=== PATIENT | female | born 2005 | race African-American/Black ===

== ENCOUNTER 2024-06-29 20:56 | Emergency (ER) | payer BC, SELFPAY ==
--- NOTE | ~2024-06-29 | US_ITS ---
EXAMINATION: US PELVIS CLINICAL INFORMATION: Rule out torsion. COMPARISON: None available. TECHNIQUE: Ultrasound of the pelvis is performed using both transabdominal and transvaginal transducers along with Doppler. Transvaginal imaging is performed due to inadequate visualization transabdominally. FINDINGS: The uterus is retroflexed measuring 8.07 x 3.3 cm x 4.2 cm. The endometrial echocomplex measures 3 mm in width. No abnormal endometrial fluid collections identified. The right ovary measures 3.07 x 2.2 cm x 2.0 seen. The left ovary measures 2.7 cm x 2.1 x 2.2 cm. Normal-appearing subcentimeter anechoic cysts are present in the left and right ovaries. Spectral Doppler interrogation demonstrates low resistance arterial waveforms in the left and right ovaries. A trace quantity of physiologic anechoic free intraperitoneal fluid is present in the pelvic cul-de-sac. US/US pelvic and transvaginal IMPRESSION: *Normal pelvic ultrasound. *Normal appearance of the ovaries. Normal bilateral ovarian low resistive arterial waveforms. No evidence of ovarian torsion. *Retroflexed uterus. Electronically signed by: Delbert Garza MD 06/30/2024 01:31 AM [facility]
[2024-06-29 21:04] VITALS: BP 115/65; PULSE 80; RESP 24; TEMP 36.8; O2SAT 99; BMI 29.1
[2024-06-29 21:36] LABS: MANUAL DIFF FLAG NO
[2024-06-29 21:41] LABS: Basophils Percent Auto 0.5 % (0-2); Eosinophils Absolute Auto 0.5 X10*3/uL (0.0-0.4); Eosinophils Percent Auto 6.5 % (0-4); Hematocrit 39.5 % (37.0-47.0); Imm Gran Abs Auto 0.02 X10*3/uL (0.00-0.03); Imm Gran Pct Auto 0.2 % (0.0-0.4); Lymphocytes Absolute Auto 3.3 X10*3/uL (1.2-4.9); Lymphocytes Percent Auto 40.6 % (20-40); Mean Corpuscular HGB Conc 32.9 g/dl (31.0-35.0); Mean Corpuscular Hemoglobin 27.2 pg (27.0-33.0); Mean Corpuscular Volume 82.6 fL (80.0-98.0); Mean Platelet Volume 9.4 fL (9.4-12.3); Monocytes Absolute Auto 0.6 X10*3/uL (0.1-1.2); Monocytes Percent Auto 7.6 % (2-11); Neutrophils Absolute Auto 3.7 x10*3/uL (2.0-8.3); Neutrophils Percent Auto 44.6 % (45-73); Platelet Count 322 X10*3/uL (160-400); Red Blood Count 4.78 X10*6/uL (4.20-5.50); Red Cell Distribution Width 14.1 % (11.0-16.0); White Blood Count 8.2 X10*3/uL (4.8-10.8)
[2024-06-29 21:46] LABS: Appearance Urine Clear; Color Urine Yellow; Glucose Urine UA Negative (Negative); Leukocyte Esterase Urine Negative (Negative); Nitrite Urine Negative (Negative); UMIC TRIGGER UACC YES; Urine Blood Moderate (2+) (Negative); Urine Ketones Negative (Negative); Urine Protein Negative (Neg-Trace)
[2024-06-29 21:51] LABS: Bacteria Urine None Seen (None Seen); Hyaline Casts Urine 0-2 /LPF (0-2); RBC Urine >20 /HPF (0-2); Squamous Epithelial Cell Urine 0-2 /HPF (0-2); WBC Urine 0-5 /HPF (0-5)
[2024-06-29 21:53] LABS: Alanine Aminotransferase 15 U/L (0-31); Albumin Level 4.1 g/dL (3.5-5.0); Alkaline Phosphatase 80 U/L (39-117); Anion Gap 11 (12-20); Aspartate Amino Transferase 19 U/L (5-31); Bilirubin Direct 0.1 mg/dL (0.0-0.5); Bilirubin Total 0.3 mg/dL (0.0-1.0); Blood Urea Nitrogen 12 mg/dL (9-16); Calcium 9.2 mg/dL (8.4-10.2); Carbon Dioxide 24 mmol/L (22-29); Chloride 106 mmol/L (96-108); Creatinine Clr Calc Pharmacy 181.9; Estimated Glomerular Filt Rate > 60; Glucose Random 95 mg/dL (60-115); Lipase 16 U/L (8-78); Potassium 3.7 mmol/L (3.3-5.1); Sodium 137 mmol/L (135-145); Total Protein 7.3 g/dL (6.5-8.0)
[2024-06-30] MEDS: Ketorolac Tromethamine 15 MG/ML VIAL IM (00:01)
--- NOTE | 2024-06-30 01:17 | ED_ITS ---
HPI - Abdominal Pain General Chief Complaint: Abdominal Pain Stated Complaint: lwr abd pain Time Seen by Provider: 06/29/24 23:25 Source: patient Limitations: no limitations History of Present Illness ED Provider: Margy Adair PA-C HPI narrative: 19-year-old F with hx of menorrhagia and dysmenorrhea presents with pelvic pain x2 days. Patient currently has her cycle, she has had her typical related cramps and heavy bleeding. However, prior to arrival her discomfort became severe, and she developed diaphoresis. Her symptoms today are atypical for her. Denies known ovarian cysts. Related Data Previous Rx's ?Medication ?Instructions ?Recorded ketorolac 10 mg tablet 10 mg PO Q6H PRN pain #20 tabs 06/30/24 Allergies Allergy/AdvReac Type Severity Reaction Status Date / Time No Known Allergies Allergy Verified 06/29/24 21:08 Review of Systems Review of Systems Yes all other systems are reviewed and are negative Constitutional: Denies fatigue and Denies fever(s) Cardiovascular: Denies chest pain Gastrointestinal: Denies abdominal pain Genitourinary: Reports abnormal vaginal bleeding, Reports dysmenorrhea and Reports pelvic pain Endocrine: Denies fatigue [facility] Past Medical History Attestation statement: The following information was validated with the patient. Social History Social History Advance Directives: No Advance Directives Information Provided: No Do you have a plan to hurt others: No Plan Physical Exam ED Vital Signs: Vital Signs - 24 hr 06/29/24 21:04 Temperature 98.2 F Pulse Rate 80 Respiratory Rate 24 H Blood Pressure 115/65 Pulse Oximetry 99 Oxygen Delivery Method Room Air BMI result Body Mass Index 29.1 Const Other: Alert, overall well-appearing Orientation/consciousness: patient oriented x3 Resp Other: Nonlabored respirations Cardio Other: Normal peripheral perfusion GI Other: Abdomen is soft, nondistended, tenderness across the entire abdomen, right greater than left, no guarding Skin Other: Warm dry no rash Neuro General: patient oriented x3, no focal motor deficits and CN's II-XI intact bilaterally Psych Other: Calm cooperative Medical Decision Making Medical Decision Making MDM Narrative: 19-year-old F with hx of menorrhagia and dysmenorrhea presents with pelvic pain x2 days. Patient currently has her cycle, she has had her typical related cramps and heavy bleeding. However, prior to arrival her discomfort became severe, and she developed diaphoresis. Her symptoms today are atypical for her. Denies known ovarian cysts. Problem: Menorrhagia and dysmenorrhea History: Per patient I have considered the following differential diagnoses: Typical menstrual cycle symptoms for the patient, torsion, appendicitis, ectopic Plan: Screening labs were obtained from triage, they neglected to obtain a , we will add that on. The patient does have her cycle, ectopic less likely, but not out of the question. I am most concerned for potential torsion, the patient states she has been worked up for potential PCOS, she is pending follow up appointment. We will obtain a pelvic ultrasound. Given Toradol for pain. I have independently reviewed the following tests: Labs: No leukocytosis, not anemic, no electrolyte abnormality, urine not infected Transvaginal ultrasound: US/US pelvic and transvaginal IMPRESSION: *Normal pelvic ultrasound. *Normal appearance of the ovaries. Normal bilateral ovarian low resistive arterial waveforms. No evidence of ovarian torsion. *Retroflexed uterus. Electronically signed by: Delbert Garza MD 06/30/2024 01:31 AM [facility] [place] Lab Data 06/29/24 21:19 06/29/24 21:19 Labs: Lab Results 06/29/24 06/29/24 Range/Units 21:19 21:29 WBC 8.2 (4.8-10.8) X10*3/uL RBC 4.78 (4.20-5.50) X10*6/uL Hgb 13.0 (12.0-16.0) g/dl Hct 39.5 (37.0-47.0) % MCV 82.6 (80.0-98.0) fL MCH 27.2 (27.0-33.0) pg MCHC 32.9 (31.0-35.0) g/dl RDW 14.1 (11.0-16.0) % Plt Count 322 (160-400) X10*3/uL MPV 9.4 (9.4-12.3) fL Immature Gran % (Auto) 0.2 (0.0-0.4) % Neut % (Auto) 44.6 L (45-73) % Lymph % (Auto) 40.6 H (20-40) % [place] % (Auto) 7.6 (2-11) % Eos % (Auto) 6.5 H (0-4) % Baso % (Auto) 0.5 (0-2) % Lymph # (Auto) 3.3 (1.2-4.9) X10*3/uL [place] # (Auto) 0.6 (0.1-1.2) X10*3/uL Eos # (Auto) 0.5 H (0.0-0.4) X10*3/uL Baso # (Auto) 0.0 (0.0-0.2) X10*3/uL Abs Immat Gran (auto) 0.02 (0.00-0.03) X10*3/uL Absolute Neuts (auto) 3.7 (2.0-8.3) x10*3/uL Absolute Nucleated RBC 0.000 (0.0-0.012) X10*3/uL Nucleated RBC % (auto) 0.0 (0.0-0.2) /100WBC Sodium 137 (135-145) mmol/L Potassium 3.7 (3.3-5.1) mmol/L Chloride 106 (96-108) mmol/L Carbon Dioxide 24 (22-29) mmol/L Anion Gap 11 L (12-20) BUN 12 (9-16) mg/dL Creatinine 0.59 (0.5-1.4) mg/dL Estim Creat Clear Calc 181.9 Estimated GFR > 60 Random Glucose 95 (60-115) mg/dL Calcium 9.2 (8.4-10.2) mg/dL Total Bilirubin 0.3 (0.0-1.0) mg/dL Direct Bilirubin 0.1 (0.0-0.5) mg/dL AST 19 (5-31) U/L ALT 15 (0-31) U/L Alkaline Phosphatase 80 (39-117) U/L Total Protein 7.3 (6.5-8.0) g/dL Albumin 4.1 (3.5-5.0) g/dL Lipase 16 (8-78) U/L Urine Color Yellow Urine Appearance Clear Urine pH 7.0 (5.0-9.0) Ur Specific [place] 1.020 (1.005-1.025) Urine Protein Negative (Neg-Trace) mg/dL Urine Glucose (UA) Negative (Negative) mg/dL Urine Ketones Negative (Negative) mg/dL Urine Blood Moderate (2+) H (Negative) Urine Nitrite Negative (Negative) Ur Leukocyte Esterase Negative (Negative) Urine RBC >20 H (0-2) /HPF Urine WBC 0-5 (0-5) /HPF Ur Squamous Epith Cells 0-2 (0-2) /HPF Urine Bacteria None Seen (None Seen) Hyaline Casts 0-2 (0-2) /LPF Medications Administered Discontinued Medications Generic Name Dose Route Start Last Admin Trade Name Freq PRN Reason Stop Dose Admin Ketorolac Tromethamine 15 mg 06/29/24 23:32 06/30/24 00:01 Ketorolac Tromethamine 15 Mg/Ml Vial IM 06/29/24 23:33 15 mg ONCE ONE Administration Discharge Plan Discharge Clinical Impression: Dysmenorrhea, Menorrhagia Patient Disposition: Home, Self-Care Instructions: Dysmenorrhea (ED), Menorrhagia (ED) Additional Instructions: You had no lab abnormalities, the transvaginal ultrasound was normal as well. You need to follow up with your human resources coordinator to discuss other interventions to help manage your heavy painful periods. Use the ketorolac as needed for your menstrual cramp pain. Prescriptions: New ketorolac 10 mg tablet 10 mg PO Q6H PRN (Reason: pain) Qty: 20 0RF Rx Instructions: maximum total duration of 5 days from all oral, intranasal, or parenteral formulations. The patient received an intramuscular dose of Toradol here in the emergency department. Stand Alone Forms: Work/School Release Print Language: Malawian
[2024-06-30 02:35] VITALS: BP 112/68; PULSE 78; RESP 20; TEMP 36.9; O2SAT 99
== END 2024-06-30 02:02 | disposition home or self-care (01) ==
PROVIDERS: Emergency Provider Emergency Medicine; PCP Nurse Practitioner Family
DX: N94.6 Dysmenorrhea, unspecified (principal); N92.1 Excessive and frequent menstruation with irregular cycle; R10.2 Pelvic and perineal pain
CPT/HCPCS: 36415; 76830; 76856; 80048; 80076; 81001; 83690; 85025; 96372; 99284; J1885

== ENCOUNTER 2025-05-15 10:25 | Emergency (ER) | payer BC, SELFPAY ==
--- NOTE | 2025-05-15 | ECG_ITS ---
Test Reason : syncope Blood Pressure : */* mmHG Vent. Rate : 77 BPM Atrial Rate : 77 BPM P-R Int : 184 ms QRS Dur : 84 ms QT Int : 376 ms P-R-T Axes : -7 78 37 degrees QTcB Int : 425 ms Normal sinus rhythm Normal ECG No previous ECGs available Referred By: Generic ED Physician Electronically Signed By: GABRIEL DOWLING
--- NOTE | ~2025-05-15 | CT_ITS ---
EXAMINATION: CT HEAD WITHOUT CONTRAST CLINICAL INFORMATION: Head trauma COMPARISON: None available. TECHNIQUE: Contiguous axial imaging was performed from the skull base to vertex without intravenous administration of contrast. This CT examination was performed using dose optimization techniques as appropriate, variously including the following: *Automated exposure control *Adjustment of mA and/or kV according to patient size (this includes techniques or standardized protocols for targeted exams where dose is matched to indication/reason for exam; i.e. extremities or head) *Use of iterative reconstruction technique FINDINGS: There is no acute ischemic change. There is no intracranial hemorrhage. There is no mass-effect or midline shift. Basal cisterns and ventricles are within normal limits for age/cerebral volume. Orbits are symmetrical and unremarkable. Paranasal sinuses and mastoid air cells are pneumatized. There are no bony abnormalities. CT/CT head/brain wo IV con IMPRESSION: No acute intracranial abnormality. Electronically signed by: Robert Tavera MD 05/15/2025 12:35 PM EDT
[2025-05-15 10:38] VITALS: BP 112/59; BP 97/72; PULSE 78; PULSE 81; RESP 16; TEMP 36.7; O2SAT 100; BMI 28.3
[2025-05-15 11:02] LABS: MANUAL DIFF FLAG NO
[2025-05-15 11:11] LABS: Hematocrit 40.8 % (37.0-47.0); Hemoglobin 13.1 g/dl (12.0-16.0); INTERNATIONAL NORM RATIO 1.1 (0.9-1.1); Imm Gran Abs Auto 0.02 X10*3/uL (0.00-0.03); Imm Gran Pct Auto 0.2 % (0.0-0.4); Lymphocytes Absolute Auto 3.0 X10*3/uL (1.2-4.9); Mean Corpuscular HGB Conc 32.1 g/dl (31.0-35.0); Mean Corpuscular Hemoglobin 26.4 pg (27.0-33.0); Mean Corpuscular Volume 82.3 fL (80.0-98.0); NRBC Abs Auto 0.000 X10*3/uL (0.0-0.012); NRBC Pct Auto 0.0 /100WBC (0.0-0.2); Platelet Count 319 X10*3/uL (160-400); Prothrombin Time 13.0 SEC (10.9-12.4); Red Blood Count 4.96 X10*6/uL (4.20-5.50); White Blood Count 8.8 X10*3/uL (4.8-10.8)
[2025-05-15 11:19] LABS: Alanine Aminotransferase 11 U/L (0-31); Albumin Level 4.6 g/dL (3.5-5.0); Alkaline Phosphatase 95 U/L (39-117); Anion Gap 12 (12-20); Aspartate Amino Transferase 22 U/L (5-31); Blood Urea Nitrogen 8 mg/dL (9-16); Calcium 9.5 mg/dL (8.4-10.2); Carbon Dioxide 24 mmol/L (22-29); Chloride 108 mmol/L (96-108); Creatinine Clr Calc Pharmacy 186.3; Estimated Glomerular Filt Rate > 60; Potassium 4.2 mmol/L (3.3-5.1); Sodium 140 mmol/L (135-145); Total Protein 7.5 g/dL (6.5-8.0)
[2025-05-15 11:25] LABS: Troponin-I High Sensitivity < 2.7 ng/L (<3.5-17.0)
[2025-05-15 12:30] VITALS: BP 126/78; PULSE 84; RESP 16; TEMP 36.6; O2SAT 99
--- NOTE | 2025-05-15 12:57 | ED.GENADULT ---
HPI - General Adult General Chief complaint: Syncope Stated complaint: FALL, +LOC, DIZZINESS, H/A Time Seen by Provider: 05/15/25 11:45 Source: patient and EMS Mode of arrival: EMS Limitations: no limitations History of Present Illness ED Provider: [facility] narrative: This is a 20-year-old woman presenting with dizziness and syncope, she states she has had dizziness in the past getting up from a seated position, she got up from a seated position started walking vision became blurred slightly getting nauseous and then ended up passing out on the tile floor hitting her head, not on blood thinners, not on control pills, prior to that did not have any chest pain or shortness of breath, right now has some sensitivity to light, slight nausea, and pressure behind her eyes. No weakness in upper or lower extremities. Related Data Previous Rx's ?Medication ?Instructions ?Recorded ketorolac 10 mg tablet 10 mg PO Q6H PRN pain #20 tabs 06/30/24 Allergies Allergy/AdvReac Type Severity Reaction Status Date / Time No Known Allergies Allergy Verified 05/15/25 10:42 Review of Systems Constitutional: Constitutional: Reports as per [facility] Social History Social History Advance Directives: No Advance Directives Information Provided: No Physical Exam ED Vital Signs: Vital Signs - 24 hr 05/15/25 10:38 05/15/25 12:30 Temperature 98.1 F 97.9 F Pulse Rate 81 84 Respiratory Rate 16 16 Blood Pressure 112/59 L 126/78 Pulse Oximetry 100 99 Oxygen Delivery Method Room Air Room Air BMI result Body Mass Index 28.3 Const Other: General: ?Appears of stated age ? ?PERRLA, EOMI, MMM, no dental trauma ? Neck: Cervical collar cleared using nexus criteria ? ?CV: RRR, no obvious murmurs appreciated ? ?Resp: ?No wheezing rales rhonchi no stridor moving air well ? Abd: ?Bowel sounds are present, no tenderness no rebound no rigidity ? ?MSK: FROM, strength 5/5 all extremities ? Skin: Warm, dry, intact, slight hematoma to the midline frontal ? ?Neuro: ?Alert and oriented x3, moving upper and lower extremities symmetrically, no obvious facial asymmetry noted, cranial nerves 2-12 intact Medications Administered Discontinued Medications Generic Name Dose Route Start Last Admin Trade Name Freq PRN Reason Stop Dose Admin Acetaminophen 975 mg 05/15/25 11:58 05/15/25 13:02 Acetaminophen 325 Mg Tablet PO 05/15/25 11:59 975 mg ONCE ONE Administration Sodium Chloride 1,000 mls @ 999 mls/hr 05/15/25 12:00 05/15/25 13:05 Ns IV 05/15/25 13:00 Not Given .Q1H1M [facility] Medical Decision Making Medical Decision Making [facility] Narrative: 1:00 PM 05/15/2025 (Dr. Abdullahi Yates): Young woman without medical issues, not on control pills presenting with an episode of syncope it sounds like she has had orthostatic syncope, she was either sitting or laying down got up very quickly started walking in the passed out, no prodromal symptoms no ECG changes to suspect WPW or underlying dysrhythmia, not having abdominal pain in the setting of to suspect ruptured ectopic, no risk factors for cardiac tamponade or PE, we will obtain imaging of the brain, cervical collar use cleared using nexus criteria no neck pain to necessitate further imaging of the neck, we will give fluids, we will re-evaluate, treat symptomatically and discharge likely has concussion Differential Diagnosis Differential Diagnoses: The differential diagnosis associated with the presentation includes (WPW, Brugada, dysrhythmia, PE, traumatic brain injury, orthostatic syncope, vasovagal syncope) Admission/Observation Consideration of admission/observation: Escalation of care including admission/observation considered Lab Data [facility] Lab Attestation statement: I reviewed the patient's lab results. 05/15/25 10:59 05/15/25 10:59 Labs: Lab Results 05/15/25 Range/Units 10:59 WBC 8.8 (4.8-10.8) X10*3/uL RBC 4.96 (4.20-5.50) X10*6/uL Hgb 13.1 (12.0-16.0) g/dl Hct 40.8 (37.0-47.0) % MCV 82.3 (80.0-98.0) fL MCH 26.4 L (27.0-33.0) pg MCHC 32.1 (31.0-35.0) g/dl RDW 14.8 (11.0-16.0) % Plt Count 319 (160-400) X10*3/uL MPV 9.8 (9.4-12.3) fL Immature Gran % (Auto) 0.2 (0.0-0.4) % Neut % (Auto) 55.6 (45-73) % Lymph % (Auto) 33.7 (20-40) % [place] % (Auto) 7.2 (2-11) % Eos % (Auto) 3.0 (0-4) % Baso % (Auto) 0.3 (0-2) % Lymph # (Auto) 3.0 (1.2-4.9) X10*3/uL [place] # (Auto) 0.6 (0.1-1.2) X10*3/uL Eos # (Auto) 0.3 (0.0-0.4) X10*3/uL Baso # (Auto) 0.0 (0.0-0.2) X10*3/uL Abs Immat Gran (auto) 0.02 (0.00-0.03) X10*3/uL Absolute Neuts (auto) 4.9 (2.0-8.3) x10*3/uL Absolute Nucleated RBC 0.000 (0.0-0.012) X10*3/uL Nucleated RBC % (auto) 0.0 (0.0-0.2) /100WBC PT 13.0 H (10.9-12.4) SEC INR 1.1 (0.9-1.1) Sodium 140 (135-145) mmol/L Potassium 4.2 (3.3-5.1) mmol/L Chloride 108 (96-108) mmol/L Carbon Dioxide 24 (22-29) mmol/L Anion Gap 12 (12-20) BUN 8 L (9-16) mg/dL Creatinine 0.58 (0.5-1.4) mg/dL Estim Creat Clear Calc 186.3 Estimated GFR > 60 Random Glucose 90 (60-115) mg/dL Calcium 9.5 (8.4-10.2) mg/dL Total Bilirubin 0.7 (0.0-1.0) mg/dL AST 22 (5-31) U/L ALT 11 (0-31) U/L Alkaline Phosphatase 95 (39-117) U/L Troponin I High Sens < 2.7 (<3.5-17.0) ng/L Total Protein 7.5 (6.5-8.0) g/dL Albumin 4.6 (3.5-5.0) g/dL Independent Interpretation I performed an independent interpretation of an: EKG (77 beats per minute, otherwise normal ECG without dysrhythmia, AV kelley blocks or ST-T changes to suspect underlying ACS, my independent interpretation) and CT Scan Interpretation: CT/CT head/brain wo IV con IMPRESSION: No acute intracranial abnormality. Critical Care Time Critical Care Time Critical Care Time: Yes Total Critical Care Time: 32 Attestation: Time is exclusive of separately billable procedures. Time includes: direct patient care, patient reassessment, coordination of patient care, interpretation of data (laboratory data, pulse oximetry, arterial blood gases and chest xrays), review of patient's medical records, medical consultation and documentation of patient care. Procedures excluded from critical care time: central intravenous line placement and electrocardiography. Discharge Plan Discharge Clinical Impression: Vasovagal syncope, Head concussion Instructions: Syncope (ED) Additional Instructions: I recommend you abstain from screen time, [place], and really just rest, stay well hydrated Tylenol 975 mg every 6 hours as needed for headache, blood work EKG CT brain unremarkable, always be mindful getting up from a seated or lying position before you start walking, if this becomes a persistent issue you may need follow up with the PCP you may need additional workup and cardiology referral Prescriptions: No Action ketorolac 10 mg tablet 10 mg PO Q6H PRN (Reason: pain) Qty: 20 0RF Rx Instructions: maximum total duration of 5 days from all oral, intranasal, or parenteral formulations. The patient received an intramuscular dose of Toradol here in the emergency department. Stand Alone Forms: Work/School Release Print Language: Togolese
[2025-05-15 13:35] VITALS: BP 126/78; PULSE 84; RESP 16; TEMP 36.6; O2SAT 99
== END 2025-05-15 13:36 | disposition home or self-care (01) ==
PROVIDERS: Emergency Provider Emergency Medicine
DX: S06.0X1A Concussion with loss of consciousness of 30 minutes or less, initial encounter (principal); R42 Dizziness and giddiness; R55 Syncope and collapse; W18.39XA Other fall on same level, initial encounter; Y93.89 Activity, other specified; Y92.098 Other place in other non-institutional residence as the place of occurrence of the external cause; Y99.8 Other external cause status
CPT/HCPCS: 36415; 70450; 80053; 84484; 85025; 85610; 93005; 99284; J2405

== ENCOUNTER → 2025-05-15 11:16 | Outpatient (BNV) | payer BC, SELFPAY | PROVIDERS: Emergency Provider Emergency Medicine; Visit Provider Internal Medicine | DX: R55 Syncope and collapse (principal) | CPT/HCPCS: 93010 ==

== ENCOUNTER → 2025-05-15 11:58 | Outpatient (BNV) | payer BC, SELFPAY | PROVIDERS: Emergency Provider Emergency Medicine; Visit Provider Radiology Diagnostic Radiology | DX: S09.90XA Unspecified injury of head, initial encounter (principal) | CPT/HCPCS: 70450 ==